=== PATIENT | male | born 1985 | race Caucasian/White ===

== ENCOUNTER → 2017-11-29 | Outpatient (CLI) | payer BC ==
--- NOTE | ~2017-11-29 | 2DMMODE ---
[facility] [place] [employer] [place] [address] 2 D/M-MODE ECHOCARDIOGRAM Name: OTTO LINTON Room #: REG [facility]#: [id number] Admission: 11/29/17 Attend Phys: Arthur Stein Discharge: Date of : 83 Date of Service: 11/29/17 1435 Report #: [id number] THIS REPORT FOR: //name// APPROVED REPORT Study performed: 11/29/2017 13:10:27 EXAM: Comprehensive 2D, Doppler, and color-flow Echocardiogram Patient Location: Out-Patient Status: routine BSA: 2.49 HR: 82 bpm BP: 152/85 mmHg Rhythm: NSR Other Information Study Quality: Good Indications Palpitations 2D Dimensions RVDd: 37.16 mm LVEF(%): 76.77 (>50%) IVSd: 11.30 (7-11mm) LVOT Diam: 23.91 (18-24mm) LVDd: 49.05 mm PWd: 11.14 (7-11mm) Ascending Ao: 32.22 (22-36mm) LVDs: 26.69 (25-40mm) Aortic Root: 33.49 mm Delgadillo's LVEF: 76.77 % Volumes Left Atrial Volume (Systole) Single Plane 4CH: 54.63 mL Single Plane 2CH: 55.37 mL LA ESV Index: 24.00 mL/m2 Aortic Valve AoV Peak Killian.: 1.84 m/s AO Peak Gr.: 13.52 mmHg LVOT Max P.24 mmHg LVOT Max V: 1.44 m/s MARIO ALBERTO Vmax: 3.50 cm2 Mitral Valve E/A Ratio: 1.6 MV Decel. Time: 216.05 ms [facility] [address] [place] [address] 2 D/M-MODE ECHOCARDIOGRAM Name: [facility] Room #: [facility]#: [id number] Admission: 11/29/17 Attend Phys: Arthur Stein Discharge: Date of : 83 Date of Service: 11/29/17 1435 Report #: [id number] MV E Max Killian.: 0.83 m/s MV A Killian.: 0.52 m/s MV PHT: 62.65 ms IVRT: 59.98 ms Pulmonary Valve PV Peak Killian.: 1.44 m/s PV Peak Gr.: 8.32 mmHg Pulmonary Vein P Vein S: 0.67 m/s P Vein D: 0.53 m/s P Vein S/D Ratio: 1.26 Tricuspid Valve RAP Estimate: 5.00 mmHg Left Ventricle The left ventricle is normal size. There is normal LV segmental wall motion. Left ventricular wall thickness is at the upper limits of normal. Left ventricular systolic function is normal. LVEF is 60-65%. The left ventricular diastolic function is normal. Right Ventricle Right ventricle is grossly normal in size. The right ventricular systolic function is normal. Atria The left atrium size is normal. The right atrium size is normal. Aortic Valve The aortic valve is normal in structure. No aortic regurgitation is present. There is no aortic valvular stenosis. Mitral Valve The mitral valve is normal in structure. Trace mitral regurgitation. Tricuspid Valve The tricuspid valve is normal in structure. There is no tricuspid valve regurgitation noted. Unable to assess PA pressure. Pulmonic Valve The pulmonary valve is normal in structure. Trace pulmonic regurgitation. [facility] [address] [place] [address] 2 D/M-MODE ECHOCARDIOGRAM Name: OTTO LINTON Room #: REG Daniela.#: [id number] Admission: 11/29/17 Attend Phys: Arthur Stein Discharge: Date of : 83 Date of Service: 11/29/17 1435 Report #: [id number] Great Vessels The aortic root is normal in size. The ascending aorta is normal in size. IVC is normal in size and collapses >50% with inspiration. Pericardium There is no pericardial effusion. <Conclusion> The left ventricle is normal size. LVEF is 60-65%. The aortic valve is normal in structure. The mitral valve is normal in structure. The tricuspid valve is normal in structure. There is no tricuspid valve regurgitation noted. Unable to assess PA pressure. The pulmonary valve is normal in structure. Trace pulmonic regurgitation. There is no pericardial effusion. <ELECTRONICALLY SIGNED> By: Jeovanny Marcial MD 11/29/17 1435 1435 1435 Jeovanny Marcial MD /INF
== END ==
LOC: CV 07:50
DX: R00.2 Palpitations (principal)